=== PATIENT | female | born 1990 | race Caucasian/White ===

== ENCOUNTER 2019-05-10 02:15 | Emergency (ER) | payer MEDICAID ==
[~2019-05-10] VITALS: Ht 162.6 cm; Wt 69.4 kg
[2019-05-10 04:20] VITALS: BP 151/88
== END 2019-05-10 04:37 | disposition home or self-care (01) ==
LOC: ER 02:15
DX: S30.0XXA Contusion of lower back and pelvis, initial encounter (principal); Z88.0 Allergy status to penicillin; W18.39XA Other fall on same level, initial encounter; Y93.89 Activity, other specified; Y99.8 Other external cause status; Y92.89 Other specified places as the place of occurrence of the external cause
CPT/HCPCS: 72220

== ENCOUNTER 2021-05-07 10:46 | Emergency (ER) | payer MEDICAID ==
[~2021-05-07] VITALS: Ht 162.6 cm; Wt 70.3 kg
[2021-05-07 10:48] VITALS: BP 145/102
[2021-05-07] MEDS ORDERED: ALUM & MAG HYDROX-SIMETH LIQ(MAALOX) 30 ML PO ONE (11:15)
[2021-05-07] MEDS ORDERED: FAMOTIDINE (10MG/ML) 2ML VL IV ONE (11:15)
[2021-05-07] MEDS ORDERED: LIDOCAINE VISCOUS 2% 15ML UD PO ONE (11:15)
[2021-05-07] MEDS ORDERED: ONDANSETRON HCL 4 MG/2 ML VIAL IV ONE (11:15)
[2021-05-07 12:00] LABS: Basophils # (auto) 0.1 10 ^3/uL (0-0.2); Basophils % (auto) 0.8 % (0.0-2.0); Eosinophils # (auto) 0.3 10 ^3/uL (0-0.8); Eosinophils % (auto) 2.2 % (0.0-7.0); Hematocrit 41.6 % (36.0-46.0); Lymphocytes # (auto) 2.1 10 ^3/uL (0.4-5.4); Lymphocytes % (auto) 15.7 % (10.0-50.0); Mean Corpuscular Hemoglobin 31.5 pg (28.0-32.0); Mean Corpuscular Hgb Conc. 33.6 g/dL (32.0-36.0); Mean Corpuscular Volume 93.7 fL (80.0-100.0); Monocytes # (auto) 0.6 10 ^3/uL (0-1.3); Monocytes % (auto) 4.6 % (0.0-12.0); Neutrophils # (auto) 10.2 10 ^3/uL (1.6-8.6); Neutrophils % (auto) 76.7 % (37.0-80.0); Red Blood Cells 4.44 10^6/uL (4.0-5.20); Red Cell Distribution Width 13.2 % (11.8-14.3); White Blood Cell 13.3 10^3/uL (4.4-10.8)
[2021-05-07 12:17] LABS: Albumin 4.3 g/dL (3.4-5.0); Calcium 8.7 mg/dL (8.5-10.1); Potassium 3.5 mmol/L (3.5-5.1)
[2021-05-07 12:19] LABS: Urine Bacteria FEW /hpf (None Seen); Urine Blood 3+ /uL (Negative); Urine Mucus FEW (None Seen); Urine Specific Gravity 1.026 (1.001-1.035); Urine WBC 9 /hpf (0 - 5)
[2021-05-07 12:21] LABS: BUN/Creatinine Ratio 15.4; Bilirubin, Total 1.4 mg/dL (0.2-1.0); Total Protein 7.6 g/dL (6.4-8.2)
== END 2021-05-07 12:05 | disposition left against medical advice (07) ==
LOC: ER 10:46
DX: R10.9 Unspecified abdominal pain (principal); R11.2 Nausea with vomiting, unspecified; R19.7 Diarrhea, unspecified; Z53.21 Procedure and treatment not carried out due to patient leaving prior to being seen by health care provider
CPT/HCPCS: 36415; 80053; 81001; 81025; 83690; 85025; J2405; J3490

== ENCOUNTER 2024-02-21 12:09 | Emergency (ER) | payer MEDICAID ==
[~2024-02-21] VITALS: Ht 162.6 cm; Wt 87.0 kg
--- NOTE | 2024-02-21 12:57 | DVH ---
CHEST RADIOGRAPH Indication: CHEST PAIN Technique: Single frontal view of the chest was obtained Comparison: None FINDINGS: Lines and Tubes: None Lungs: No focal consolidation. Pleura: No effusion.No pneumothorax. Cardiomediastinal contours: Unremarkable Pulmonary vasculature: Within normal limits. Bones: There is chronic healed right rib fracture. IMPRESSION: 1. No acute cardiopulmonary disease. HS:Y
[2024-02-21 13:17] LABS: Urine Bacteria FEW /hpf (None Seen); Urine Blood TRACE /uL (Negative); Urine Clarity Clear (Clear); Urine Color Light-Yellow (Yellow); Urine Mucus FEW (None Seen); Urine Protein, UAD TRACE (Negative); Urine Specific Gravity 1.024 (1.001-1.035); Urine Squamous Epithelial Cell FEW /hpf (<5); Urine Urobilinogen Normal (Negative); Urine WBC 2 /hpf (0 - 5)
--- NOTE | 2024-02-21 14:09 | ED.PDOC ---
History of Present Illness Chief Complaint: Chest Pain Comments pt relapsed and started drinking again and feels chest pain after drinking. 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: Denies all HYDRAMATIC MECHANIC Hx Family History Family History: Reviewed,noncontributory to illness Social History Smoker: Non-Smoker Alcohol: Heavy Drugs: Denies Drug Use Constitutional: denies: chills, diaphoresis, fatigue, fever, malaise, sweats, weakness, others EENTM: denies: blurred vision, double vision, ear bleeding, ear discharge, ear drainage, ear pain, ear ringing, eye pain, eye redness, hearing loss, mouth pain, mouth swelling, nasal discharge, nose bleeding, nose congestion, nose pain, photophobia, tearing, throat pain, throat swelling, voice changes, others Respiratory: denies: cough, hemoptysis, orthopnea, SOB at rest, shortness of breath, SOB with excertion, stridor, wheezing, others Cardiovascular: reports: chest pain; denies: dizzy spells, diaphoresis, Dyspnea on exertion, edema, irregular heart beat, left arm pain, lightheadedness, palpitations, PND, syncope, others Gastrointestinal: denies: abdomen distended, abdominal pain, blood streaked bowels, constipated, diarrhea, dysphagia, difficulty swallowing, hematemesis, melena, nausea, poor appetite, poor fluid intake, rectal bleeding, rectal pain, vomiting, others Genitourinary: denies: abnormal vagina bleeding, burning, dyspareunia, dysuria, flank pain, frequency, hematuria, incontinence, pain, , vagina discharge, urgency, others Neurological: denies: dizziness, fainting, headache, left sided numbness, left sided weakness, numbness, paresthesia, pre-existing deficit, right sided numbness, right sided weakness, seizure, speech problems, tingling, tremors, weakness, others Musculoskeletal: denies: back pain, gout, joint pain, joint swelling, muscle pain, muscle stiffness, neck pain, others Integumetry: denies: bruises, change in color, change in hair/nails, dryness, laceration, lesions, lumps, rash, wounds, others Allergic/Immunocompromised: denies: Difficulty Healing, Frequent Infections, Hives, Itching, others Hematologic/Lymphatic: denies: anemia, blood clots, easy bleeding, easy bruising, swollen glands, others Endocrine: denies: excessive hunger, excessive sweating, excessive thirst, excessive urination, flushing, intolerance to cold, intolerance to heat, unexplained weight gain, unexplained weight loss, others Psychiatric: denies: anxiety, bipolar disorder, depression, hopeless, panic disorder, schizophrenia, sleepless, suicidal, others All Other Systems: Reviewed and Negative Physical Exam General Appearance: No Apparent Distress, Normal HEENT: Normal ENT Inspection, Pharynx Normal, TMs Normal Neck: Full Range of Motion, Non-Tender, Normal, Normal Inspection Respiratory: Chest Non-Tender, Lungs Clear, No Accessory Muscle Use, No Respiratory Distress, Normal Breath Sounds Cardiovascular: No Edema, No JVD, No Murmur, No Gallop, Normal Peripheral Pulses, Regular Rate/Rhythm Breast Exam: Deferred Gastrointestinal: No Organomegaly, Non Tender, No Pulsatile Mass, Normal Bowel Sounds, Soft Genitalia: Deferred Pelvic: Deferred Rectal: Deferred Extremities: No calf tenderness, Normal capillary refill, Normal inspection, Normal range of motion, Non-tender, No pedal edema Musculoskeletal : Location: Left Extremity Location: Chest Apperance: Normal, Tenderness, Tenderness: Mild Neurologic: Alert, campaign worker II-XII nml as Tested, No Motor Deficits, Normal Affect, Normal Mood, No Sensory Deficits Cerebellar Function: Normal Reflexes: Normal Skin: Dry, Normal Color, Warm Lymphatic: No Adenopathy Was a procedure done? Was a procedure done?: No EKG EKG : Pulse Rate (adult): 100 Cardiac Rhythm: ST Block: None Hypertrophy: None ST: Normal Differential Dx Considerations may include: anxiety, ptx, acs, pe, pneumonia, chest wall pain X-Ray, Labs, Meds, VS Vital Signs Date Time Temp Pulse Resp B/P (MAP) Pulse Ox O2 Delivery O2 Flow Rate FiO2 02/21/24 12:50 98.2 108 16 141/95 (110) 97 02/21/24 12:14 100 Lab Test 02/21/24 12:30 Range/Units Urine Color Light-yellow Yellow Urine Clarity Clear Clear Urine pH 6.0 5.0-9.0 Urine Specific [place] 1.024 1.001-1.035 Urine Protein Trace H Negative Urine Ketones Trace Negative Urine Blood Trace H Negative /uL Urine Nitrite Negative Negative Urine Bilirubin Negative Negative Urine Urobilinogen Normal Negative mg/dL Urine Leukocyte Esterase Negative Negative /uL Urine RBC 5 0 - 4 /hpf Urine WBC 2 0 - 5 /hpf Urine Squamous Epithelial Cells Few <5 /hpf Urine Bacteria Few H None Seen /hpf Urine Mucus Few None Seen Urine Glucose 1+ H Normal mg/dL Time of 1ST Reevaluation: 14:06 Reevaluation 1ST: Improved Patient Education/Counseling: Diagnosis, Treatment, Prognosis, Need For Follow Up Family Education/Counseling: No Family Present Additional Information pt has no cardiac risk factors and has point tenderness on palpation of the left chest wall. no signs of injuries, cxr and ekg are unremarkable. she is stable for discharge with chest wall pain Departure 1 Departure Time of Disposition: 14:08 Impression: Primary Impression: Chest wall pain Disposition: 01 HOME / SELF CARE / HOMELESS Condition: Good Discharged With: Self Critical Care Note Critical Care Time?: Yes (45 min-critical care time only) Critical care comment: due to concerns for patient's condition deterioration, the care required my highest attention and readiness to intervene. i spoke to the family, patient, reviewed any records, ordered the appropriate tests and treatments, reviewed the results, response and communicated with medical personnel, formulated a plan of care. critical care time does not include any procedures Stability Stability form required: No Heart Score Heart Score: Heart Score Response (Comments) Value History Slightly Suspicious 0 EKG Normal 0 Age <45 0 Risk Factors No known risk factors 0 Troponin Normal limit 0 Total 0 NIALL GOLDSTEIN MD Feb 21, 2024 14:09
--- NOTE | 2024-02-21 14:11 | ED.PDOC ---
HPI Comments 33y F who presents to the ED for chief complaint of chest pain. Pt states she has been having chest pain since 0200 this AM. Pt states the pain is epigastric in location, non-radiating, sharp and pressure like in nature, with no associated exacerbating or relieving factors. Pt has no associated symptoms. Pt states she did relapse with ETOH and has been heavily drinking for the past 2 days. Pt otherwise denies any other symptoms at this time. Chief Complaint: Chest Pain Time Seen by MD: 14:08 Primary Care Provider: NONE Allergies: Coded Allergies: Penicillins (Verified Allergy, Unknown, 05/10/19) Mode of Arrival: Ambulatory Past Medical History PAST MEDICAL HISTORY: Denies Surgical History: Denies all surgeries FAMILY MEDICINE CHAIR History: Denies all FAMILY MEDICINE CHAIR Hx Family History Family History: Reviewed,noncontributory to illness Constitutional: denies: chills, diaphoresis, fatigue, fever, malaise, sweats, weakness, others EENTM: denies: blurred vision, double vision, ear bleeding, ear discharge, ear drainage, ear pain, ear ringing, eye pain, eye redness, hearing loss, mouth pain, mouth swelling, nasal discharge, nose bleeding, nose congestion, nose pain, photophobia, tearing, throat pain, throat swelling, voice changes, others Respiratory: denies: cough, hemoptysis, orthopnea, SOB at rest, shortness of breath, SOB with excertion, stridor, wheezing, others Cardiovascular: reports: chest pain; denies: dizzy spells, diaphoresis, Dyspnea on exertion, edema, irregular heart beat, left arm pain, lightheadedness, palpitations, PND, syncope, others Gastrointestinal: denies: abdomen distended, abdominal pain, blood streaked bowels, constipated, diarrhea, dysphagia, difficulty swallowing, hematemesis, melena, nausea, poor appetite, poor fluid intake, rectal bleeding, rectal pain, vomiting, others Genitourinary: denies: abnormal vagina bleeding, burning, dyspareunia, dysuria, flank pain, frequency, hematuria, incontinence, pain, , vagina discharge, urgency, others Neurological: denies: dizziness, fainting, headache, left sided numbness, left sided weakness, numbness, paresthesia, pre-existing deficit, right sided numbness, right sided weakness, seizure, speech problems, tingling, tremors, weakness, others Musculoskeletal: denies: back pain, gout, joint pain, joint swelling, muscle pain, muscle stiffness, neck pain, others Integumetry: denies: bruises, change in color, change in hair/nails, dryness, laceration, lesions, lumps, rash, wounds, others Allergic/Immunocompromised: denies: Difficulty Healing, Frequent Infections, Hives, Itching, others Hematologic/Lymphatic: denies: anemia, blood clots, easy bleeding, easy bruising, swollen glands, others Endocrine: denies: excessive hunger, excessive sweating, excessive thirst, excessive urination, flushing, intolerance to cold, intolerance to heat, unexplained weight gain, unexplained weight loss, others Psychiatric: denies: anxiety, bipolar disorder, depression, hopeless, panic disorder, schizophrenia, sleepless, suicidal, others All Other Systems: Reviewed and Negative Physical Exam General Appearance: No Apparent Distress, Normal HEENT: Normal ENT Inspection, Pharynx Normal, TMs Normal Neck: Full Range of Motion, Non-Tender, Normal, Normal Inspection Respiratory: Chest Non-Tender, Lungs Clear, No Accessory Muscle Use, No Respiratory Distress, Normal Breath Sounds Cardiovascular: Other (L chest wall point tenderness) Breast Exam: Deferred Gastrointestinal: No Organomegaly, Non Tender, No Pulsatile Mass, Normal Bowel Sounds, Soft Genitalia: Deferred Pelvic: Deferred Rectal: Deferred Extremities: No calf tenderness, Normal capillary refill, Normal inspection, Normal range of motion, Non-tender, No pedal edema Musculoskeletal : Apperance: Normal Neurologic: Alert, [place] II-XII nml as Tested, No Motor Deficits, Normal Affect, Normal Mood, No Sensory Deficits Cerebellar Function: Normal Reflexes: Normal Skin: Dry, Normal Color, Warm Lymphatic: No Adenopathy Was a procedure done? Was a procedure done?: No CP Differential Dx Differential Diagnosis: A-fib, A-Flutter, Angina, Anxiety / Panic Attack, PVC's Other Differential Diagnosis musculoskeletal chest pain Differential Diagnosis: Other Differential Diagnosis: Chest Wall Pain, Costochondritis, Esophageal reflux/spa sm X-Ray, Labs, Meds, VS Vital Signs Date Time Temp Pulse Resp B/P (MAP) Pulse Ox O2 Delivery O2 Flow Rate FiO2 02/21/24 14:37 87 18 99 Room Air 02/21/24 14:37 98.2 87 18 129/95 (106) 99 98.2 02/21/24 14:09 100 02/21/24 12:50 98.2 108 16 141/95 (110) 97 02/21/24 12:14 100 Lab Test 02/21/24 12:30 Range/Units Urine Color Light-yellow Yellow Urine Clarity Clear Clear Urine pH 6.0 5.0-9.0 Urine Specific [place] 1.024 1.001-1.035 Urine Protein Trace H Negative Urine Ketones Trace Negative Urine Blood Trace H Negative /uL Urine Nitrite Negative Negative Urine Bilirubin Negative Negative Urine Urobilinogen Normal Negative mg/dL Urine Leukocyte Esterase Negative Negative /uL Urine RBC 5 0 - 4 /hpf Urine WBC 2 0 - 5 /hpf Urine Squamous Epithelial Cells Few <5 /hpf Urine Bacteria Few H None Seen /hpf Urine Mucus Few None Seen Urine Glucose 1+ H Normal mg/dL [place] [address] Ph: [phone] DIAGNOSTIC IMAGING Diagnostic Imaging Report : [id number] Signed PATIENT: LYLA PEDRAZA ACCT: [id number] UNIT: [id number] : 1990 LOC: ER ROOM / BED: / AGE / SEX: 33 / F ADM STATUS: REG ER SERVICE [id number] ORDERING PHYSICIAN: NIALL GOLDSTEIN MD PROCEDURE(s): CXRP - CHEST PORTABLE REASON: CHEST PAIN ORDER NUMBER(s): [id number], ACCESSION NUMBER(s): [id number] CHEST RADIOGRAPH Indication: CHEST PAIN Technique: Single frontal view of the chest was obtained Comparison: None FINDINGS: Lines and Tubes: None Lungs: No focal consolidation. Pleura: No effusion.No pneumothorax. Cardiomediastinal contours: Unremarkable Pulmonary vasculature: Within normal limits. Bones: There is chronic healed right rib fracture. IMPRESSION: 1. No acute cardiopulmonary disease. HS:Y ATED BY: TERENCE NASH MD DICTATED DATE/TIME: 02/21/24 1256 SIGNED BY: TERENCE NASH MD SIGNED DATE/TIME: 02/21/24 1256 CC: Time of 1ST Reevaluation: 14:40 Reevaluation 1ST: Improved Patient Education/Counseling: Diagnosis, Treatment, Prognosis, Need For Follow Up Family Education/Counseling: No Family Present Additional Information - I reviewed the following notes from patient's past medical encounters: - The following tests were ordered, and results were reviewed by me: (Labs, X- Ray, EKG): UA, EKG x3, chest x-ray, - Additional information was gathered from interviewing the following independent Historian: (Family, Other Providers, EMT): none - I reviewed and agreed with the following test results read by other provider: (X-ray, CT, US): radiologist - I discussed treatments and results with medical personnel and: (consultants, family): none Departure 1 Departure Time of Disposition: 12:44 Impression: Primary Impression: Musculoskeletal chest pain Disposition: 01 HOME / SELF CARE / HOMELESS Condition: Good Discharged With: Self Critical Care Note Critical Care Time?: No Stability Stability form required: No Heart Score Heart Score: Heart Score Response (Comments) Value History N/A 0 EKG N/A 0 Age N/A 0 Risk Factors N/A 0 Troponin N/A 0 Total 0 I personally scribed for NIALL GOLDSTEIN MD ([email or web address]) on 02/21/24 at 14:11. Electronically submitted by Keren Murray ([email or web address]). NIALL GOLDSTEIN MD Feb 21, 2024 14:11
--- NOTE | 2024-02-21 14:29 | ECG ---
[facility] Test Date: 2024-02-21 Test Time: 12:14:31 Pat Name: LYLA PEDRAZA Department: ER Room: Gender: F Weather Analyst: PARTH : 1990 Requested By: NIALL GOLDSTEIN Order Number: [id number] Reading MD: Josesito Casey Measurements Intervals [place] Rate: 100 P: 69 OK: 123 QRS: 38 QRSD: 74 T: 57 QT: 350 QTc: 452 Interpretive Statements Sinus tachycardia Probable left atrial enlargement Electronically Signed On 02-21-2024 15:45:26 PST by Josesito Casey Please click the below link to view image of tracing.
[2024-02-21 14:37] VITALS: BP 129/95; PULSE 87; RESP 18; TEMP 98.2; O2SAT 99
== END 2024-02-21 14:40 | disposition home or self-care (01) ==
LOC: ER 12:09
DX: R07.89 Other chest pain (principal); F10.20 Alcohol dependence, uncomplicated; Z88.0 Allergy status to penicillin
CPT/HCPCS: 71045; 81001; 93005; 99291

== ENCOUNTER 2024-05-13 22:43 | Emergency (ER) | payer MEDICAID ==
[~2024-05-13] VITALS: Ht 162.6 cm; Wt 79.3 kg
--- NOTE | 2024-05-14 | DVH ---
CLINICAL HISTORY: RIGHT LEG PAIN TECHNIQUE: Color and duplex doppler imaging of the right lower extremity veins was performed. Vessel compression if possible was also performed. WID: COMPARISON: None FINDINGS: Right common femoral vein: Normal compressibility and flow. Right femoral vein: Normal compressibility and flow. Right popliteal vein: Normal compressibility and flow. Proximal calf veins are normally compressible. IMPRESSION: NO SONOGRAPHIC EVIDENCE FOR DEEP VENOUS THROMBOSIS IN THE RIGHT LOWER EXTREMITY VEINS.
[2024-05-14 00:38] VITALS: BP 131/84; PULSE 75; RESP 16; TEMP 98.2; O2SAT 98
[2024-05-14] MEDS ORDERED: ACET500T58 PO (00:41)
--- NOTE | 2024-05-14 00:43 | ED.PDOC ---
Musculoskeletal HPI Comments 33-year-old female presents to ER with complaints of right groin pain x1 day. Patient reports she started experiencing sudden onset of right groin pain while laying in bed at 9:00 p.m. prior to arrival to ER. She rates her current pain a 7/10 to right groin with radiation towards her right foot. Denies use of medications for current symptoms. States she does have numbness/tingling going down posterior right leg. Patient presents to ER ambulatory on arrival, with steady gait, in no distress. Denies trauma/injury/strenuous activity, abdominal/pelvic pain or any further symptoms/complaints Chief Complaint: Lower Extremity Time Seen by MD: 23:32 Primary Care Provider: NONE Reviewed Notes: Nurses Notes, Medications, Allergies Allergies: Coded Allergies: Penicillins (Verified Allergy, Unknown, 05/10/19) Home Meds Active Scripts Sulfamethoxazole W/Trimethopri (Bactrim Ds Tablet) 1 Tab Tb, 1 TAB PO BID for 7 Days, #14 TAB 0 Refills Prov:ALVARO MANZO 05/14/24 Acetaminophen (Acetaminophen) 500 Mg Tab, 500 MG PO Q4HPRN, #30 TAB 0 Refills Prov:ALVARO MANZO 05/14/24 Information Source: Patient Mode of Arrival: Ambulatory Past Medical History PAST MEDICAL HISTORY: HTN Surgical History: Tonsillectomy 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: Denies all 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 Hx Family History Family History: Unknown Social History Smoker: Non-Smoker Alcohol: Occasionally Drugs: Denies Drug Use Lives In: Home Constitutional: denies: chills, diaphoresis, fatigue, fever, malaise, sweats, weakness, others EENTM: denies: blurred vision, double vision, ear bleeding, ear discharge, ear drainage, ear pain, ear ringing, eye pain, eye redness, hearing loss, mouth pain, mouth swelling, nasal discharge, nose bleeding, nose congestion, nose pain, photophobia, tearing, throat pain, throat swelling, voice changes, others Respiratory: denies: cough, hemoptysis, orthopnea, SOB at rest, shortness of breath, SOB with excertion, stridor, wheezing, others Cardiovascular: denies: chest pain, dizzy spells, diaphoresis, Dyspnea on exertion, edema, irregular heart beat, left arm pain, lightheadedness, palpitations, PND, syncope, others Gastrointestinal: denies: abdomen distended, abdominal pain, blood streaked bowels, constipated, diarrhea, dysphagia, difficulty swallowing, hematemesis, melena, nausea, poor appetite, poor fluid intake, rectal bleeding, rectal pain, vomiting, others Genitourinary: denies: abnormal vagina bleeding, burning, dyspareunia, dysuria, flank pain, frequency, hematuria, incontinence, pain, , vagina discharge, urgency, others Neurological: denies: dizziness, fainting, headache, left sided numbness, left sided weakness, numbness, paresthesia, pre-existing deficit, right sided numbness, right sided weakness, seizure, speech problems, tingling, tremors, weakness, others Musculoskeletal: reports: others (As stated in HPI) Integumetry: denies: bruises, change in color, change in hair/nails, dryness, laceration, lesions, lumps, rash, wounds, others Allergic/Immunocompromised: denies: Difficulty Healing, Frequent Infections, Hives, Itching, others Hematologic/Lymphatic: denies: anemia, blood clots, easy bleeding, easy bruising, swollen glands, others Endocrine: denies: excessive hunger, excessive sweating, excessive thirst, excessive urination, flushing, intolerance to cold, intolerance to heat, unexplained weight gain, unexplained weight loss, others Psychiatric: denies: anxiety, bipolar disorder, depression, hopeless, panic disorder, schizophrenia, sleepless, suicidal, others Physical Exam General Appearance: No Apparent Distress HEENT: PERRL/EOMI Neck: Full Range of Motion, Non-Tender, Normal Respiratory: Chest Non-Tender, Lungs Clear, No Accessory Muscle Use, No Respiratory Distress, Normal Breath Sounds Cardiovascular: No Murmur, No Gallop, Regular Rate/Rhythm Breast Exam: Deferred Gastrointestinal: Non Tender, No Pulsatile Mass, Soft Genitalia: Deferred Pelvic: Deferred Rectal: Deferred Extremities: Normal capillary refill, Normal range of motion Musculoskeletal : Extremity Location: Groin (TTP to right groin noted. No skin changes noted. Pulses intact. No TTP to right hip noted. 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 Was a procedure done?: No Sedation Sedation?: No Differential Diagnosis EXT Differential Diagnosis: Cellulitis, Fracture, Dislocation, Contusion, Neurovascular injury X-Ray, Labs, Meds, VS Vital Signs Date Time Temp Pulse Resp B/P (MAP) Pulse Ox O2 Delivery O2 Flow Rate FiO2 05/14/24 00:38 75 16 98 Room Air 05/14/24 00:38 98.2 75 16 131/84 (100) 98 98.2 05/13/24 22:58 98.2 75 16 131/84 (100) 98 98.2 Lab Test 05/14/24 00:50 Range/Units Urine Color Light-red Yellow Urine Clarity Ex.turbid Clear Urine pH 5.5 5.0-9.0 Urine Specific [place] 1.016 1.001-1.035 Urine Protein 1+ H Negative Urine Ketones Negative Negative Urine Blood 3+ H Negative /uL Urine Nitrite Negative Negative Urine Bilirubin Negative Negative Urine Urobilinogen Normal Negative mg/dL Urine Leukocyte Esterase 3+ Negative /uL Urine RBC 9579 0 - 4 /hpf Urine Microscopic WBC 75 H 0-5 /HPF Urine Squamous Epithelial Cells None seen <5 /hpf Urine Bacteria None seen None Seen /hpf Urine Mucus Few None Seen Urine Glucose Normal Normal mg/dL Urine Test Negative Negative PATIENT: LYLA PEDRAZA MACCT: [id number] UNIT: [id number] : 1990 LOC: ER ROOM / BED: / AGE / SEX: 33 / F ADM STATUS: REG ER SERVICE [id number] ORDERING PHYSICIAN: ALVARO MANZO PROCEDURE(s): RLDVT - RT Lower DVT REASON: RIGHT LEG PAIN ORDER NUMBER(s): [id number], ACCESSION NUMBER(s): [id number] CLINICAL HISTORY: RIGHT LEG PAIN TECHNIQUE: Color and duplex doppler imaging of the right lower extremity veins was performed. Vessel compression if possible was also performed. WID: COMPARISON: None FINDINGS: Right common femoral vein: Normal compressibility and flow. Right femoral vein: Normal compressibility and flow. Right popliteal vein: Normal compressibility and flow. Proximal calf veins are normally compressible. IMPRESSION: NO SONOGRAPHIC EVIDENCE FOR DEEP VENOUS THROMBOSIS IN THE RIGHT LOWER EXTREMITY VEINS. ATED BY: ANGELITO COX MD DICTATED DATE/TIME: 05/13/242356 SIGNED BY: ANGELITO COX MD SIGNED DATE/TIME: 05/13/242356 CC: Right lower DVT ultrasound reviewed Right hip x-ray reviewed Urinalysis reviewed -urine leukocyte esterase 3+, urine blood 3+, urine nitrites negative Urine reviewed - negative Rocephin 1 g IM ordered Toradol 60 mg IM ordered Patient neurovascularly intact, reported improvement in symptoms and in no distress prior to discharge Advised to f/u with PCP in 1-2 days Patient verbalized understanding and in no distress prior to discharge Advised to return to ER immediately if symptoms worsen Images Reviewed?: Images reviewed and evaluated by me Time of 1ST Reevaluation: 00:24 Reevaluation 1ST: N/A Patient Education/Counseling: Diagnosis, Treatment, Prognosis, Need For Follow Up Family Education/Counseling: No Family Present Departure 1 Departure Time of Disposition: 00:40 Impression: Primary Impression: UTI (urinary tract infection) Qualified Codes: N30.01 - Acute cystitis with hematuria Additional Impression: Strain of right groin Disposition: 01 HOME / SELF CARE / HOMELESS Condition: Stable e-Prescriptions Sulfamethoxazole W/Trimethopri (Bactrim Ds Tablet) 1 Tab Tb 1 TAB PO BID for 7 Days, #14 TAB 0 Refills Prov: ALVARO MANZO 05/14/24 Acetaminophen (Acetaminophen) 500 Mg Tab 500 MG PO Q4HPRN, #30 TAB 0 Refills Prov: ALVARO MANZO 05/14/24 Discharged With: Self Critical Care Note Critical Care Time?: No Stability Stability form required: No Heart Score Heart Score: Heart Score Response (Comments) Value History N/A 0 EKG N/A 0 Age N/A 0 Risk Factors N/A 0 Troponin N/A 0 Total 0 ALVARO MANZO May 14, 2024 00:43
[2024-05-14 00:53] LABS: Urine Bacteria None Seen /hpf (None Seen)
[2024-05-14 01:11] LABS: Urine Blood 3+ /uL (Negative); Urine Clarity Ex.Turbid (Clear); Urine Color Light-Red (Yellow); Urine Mucus FEW (None Seen); Urine Protein, UAD 1+ (Negative); Urine Specific Gravity 1.016 (1.001-1.035); Urine Squamous Epithelial Cell None Seen /hpf (<5); Urine Urobilinogen Normal (Negative); Urine WBC 75 /HPF (0-5); Urine pH 5.5 (5.0-9.0)
[2024-05-14] MEDS ORDERED: BACDST PO (01:23)
[2024-05-14] MEDS: cefTRIAXone SOD 1,000 MG VL IM ONE (01:36)
[2024-05-14] MEDS: KETOROLAC TROMETH 60MG/2ML VIAL IM ONE (01:37)
== END 2024-05-14 01:23 | disposition home or self-care (01) ==
LOC: ER 22:49
DX: S39.011A Strain of muscle, fascia and tendon of abdomen, initial encounter (principal); N39.0 Urinary tract infection, site not specified; I10 Essential (primary) hypertension; Z88.0 Allergy status to penicillin; Z32.02 Encounter for pregnancy test, result negative; Z90.89 Acquired absence of other organs; X58.XXXA Exposure to other specified factors, initial encounter; Y93.89 Activity, other specified; Y92.89 Other specified places as the place of occurrence of the external cause; Y99.8 Other external cause status
CPT/HCPCS: 81001; 81025; 93971; 96372; 99285; J0696; J1885

== ENCOUNTER 2024-06-08 22:53 | Emergency (ER) | payer MEDICAID ==
[~2024-06-08] VITALS: Ht 162.6 cm; Wt 79.4 kg
[~2024-06-08 22:53] MED LIST: ACET500T58 PO; BACDST PO
[2024-06-08 23:02] VITALS: BP 124/85; PULSE 64; RESP 16; O2SAT 99
--- NOTE | 2024-06-08 23:15 | ED.PDOC ---
HPI (NEURO) HPI Comments PATIENT COMES WITH C/C OF PULSATING HEADACHE X2 DAYS. PATIENT REPORTS SHE DOES NOT GET HEADACHES AND SHE IS HAVING BLURRY VISION AND SEEING ORBS. PATIENT DENIES ANY INJURY, N/VM NUMBNESS AND TINGLING. DENIES WORST HEADACHE OF HER LIFE, NAUSEA, VOMITING, DIZZINESS, CHEST PAIN, SHORTNESS OF BREATH, NECK RIGIDITY, FEVER OR CHILLS. 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 PSYCHIATRIST History: Denies all PEDIATRIC PSYCHIATRIST Hx Family History Family History: Unknown Social History Smoker: Non-Smoker Alcohol: Occasionally Drugs: Denies Drug Use Lives In: Home Constitutional: denies: chills, diaphoresis, fatigue, fever, malaise, sweats, weakness, others EENTM: denies: blurred vision, double vision, ear bleeding, ear discharge, ear drainage, ear pain, ear ringing, eye pain, eye redness, hearing loss, mouth pain, mouth swelling, nasal discharge, nose bleeding, nose congestion, nose pain, photophobia, tearing, throat pain, throat swelling, voice changes, others Respiratory: denies: cough, hemoptysis, orthopnea, SOB at rest, shortness of breath, SOB with excertion, stridor, wheezing, others Cardiovascular: denies: chest pain, dizzy spells, diaphoresis, Dyspnea on exertion, edema, irregular heart beat, left arm pain, lightheadedness, palpitations, PND, syncope, others Gastrointestinal: denies: abdomen distended, abdominal pain, blood streaked bowels, constipated, diarrhea, dysphagia, difficulty swallowing, hematemesis, melena, nausea, poor appetite, poor fluid intake, rectal bleeding, rectal pain, vomiting, others Genitourinary: denies: abnormal vagina bleeding, burning, dyspareunia, dysuria, flank pain, frequency, hematuria, incontinence, pain, , vagina discharge, urgency, others Neurological: reports: headache; denies: dizziness, fainting, left sided numbness, left sided weakness, numbness, paresthesia, pre-existing deficit, right sided numbness, right sided weakness, seizure, speech problems, tingling, tremors, weakness, others Musculoskeletal: denies: back pain, gout, joint pain, joint swelling, muscle pain, muscle stiffness, neck pain, others Integumetry: denies: bruises, change in color, change in hair/nails, dryness, laceration, lesions, lumps, rash, wounds, others Allergic/Immunocompromised: denies: Difficulty Healing, Frequent Infections, Hives, Itching, others Hematologic/Lymphatic: denies: anemia, blood clots, easy bleeding, easy bruising, swollen glands, others Endocrine: denies: excessive hunger, excessive sweating, excessive thirst, excessive urination, flushing, intolerance to cold, intolerance to heat, unexplained weight gain, unexplained weight loss, others Psychiatric: denies: anxiety, bipolar disorder, depression, hopeless, panic disorder, schizophrenia, sleepless, suicidal, others Physical Exam General Appearance: No Apparent Distress, Normal HEENT: Normal ENT Inspection, Pharynx Normal, TMs Normal Neck: Full Range of Motion, Non-Tender Respiratory: Chest Non-Tender, Lungs Clear, No Accessory Muscle Use, No Respiratory Distress, Normal Breath Sounds Cardiovascular: No Edema, No JVD, No Murmur, No Gallop, Normal Peripheral Pulses, Regular Rate/Rhythm Breast Exam: Deferred Gastrointestinal: No Organomegaly, Non Tender, No Pulsatile Mass, Normal Bowel Sounds, Soft Genitalia: Deferred Pelvic: Deferred Rectal: Deferred Extremities: Normal capillary refill, Normal inspection, Normal range of motion, Non-tender, No pedal edema Musculoskeletal : Apperance: Normal Neurologic: Alert, it program engagement director II-XII nml as Tested, No Motor Deficits, Normal Affect, Normal Mood, No Sensory Deficits Cerebellar Function: Normal Reflexes: Normal Skin: Dry, Normal Color, Warm Lymphatic: No Adenopathy Was a procedure done? Was a procedure done?: No Differential Diagnosis (SZ) Headache: Epidural Hemorrhage, Intracerebral Hemorrhage, Subarachnoid Hemorrhage, Subdural Hemorrhage, Post-Traumatic, Sinusitis X-Ray, Labs, Meds, VS Vital Signs Date Time Temp Pulse Resp B/P (MAP) Pulse Ox O2 Delivery O2 Flow Rate FiO2 06/08/24 23:02 98.3 64 16 124/85 (98) 99 98.3 06/08/24 23:02 98.3 64 16 124/85 (98) 99 98.3 06/08/24 23:02 Room Air Current Medications Medications (Trade) Dose Ordered Sig/Camila Route Start Time Stop Time Status Last Admin Ketorolac Tromethamine (Toradol Injection) 60 mg ONCE ONCE IM 06/08/24 23:45 06/08/24 23:46 DC 06/08/24 23:49 Dexamethasone Sodium Phosphate (Decadron Injection) 10 mg ONCE ONCE IM 06/08/24 23:45 06/08/24 23:46 DC 06/08/24 23:48 Ondansetron HCl (Zofran Po) 4 mg ONCE ONCE PO 06/08/24 23:45 06/08/24 23:46 DC 06/08/24 23:48 X-Ray, Labs, Meds, VS Comment PATIENT GIVEN TORADOL 60 MG IM, DECADRON 10 MG IM, AND ZOFRAN 4 MG P.O. REPORTS IMPROVEMENT IN PAIN RATES PAIN 04/06 REQUESTING DISCHARGE AT THIS TIME. SCRIPT SUMATRIPTAN FOR ABORTIVE REBOUND HEADACHE IF RECURS. ADVISED TAKE MEDICATIONS PRESCRIBED SIDE EFFECTS DISCUSSED. FOLLOW UP WITH YOUR PCP IN 1-2 DAYS CONSIDER REFERRAL TO NEUROLOGY FOR DAILY PREVENTATIVE MEDICATION IF SEVERAL MIGRAINES A WEEK. ER RETURN PRECAUTIONS GIVEN PATIENT INDICATES UNDERSTANDING AGREES WITH DISCHARGE PLAN OF CARE. Time of 1ST Reevaluation: 23:13 Reevaluation 1ST: Unchanged Time of 2ND Reevaluation: 00:46 Reevaluation 2ND: Improved Patient Education/Counseling: Diagnosis, Treatment, Prognosis, Need For Follow Up Family Education/Counseling: No Family Present Departure 1 Departure Time of Disposition: 00:45 Impression: Primary Impression: Headache Qualified Codes: R51.9 - Headache, unspecified Disposition: HOME / SELF CARE / HOMELESS Condition: Stable Additional Instructions: FOLLOW UP WITH YOUR PCP IN 1-2 DAYS CONSIDER REFERRAL TO NEUROLOGY FOR DAILY PREVENTATIVE MEDICATION IF SEVERAL MIGRAINES A WEEK. RETURN TO THE ER FOR WORST HEADACHE OF THE LIFE, SLURRED SPEECH, CHEST PAIN, DIFFICULTY BREATHING, SHORTNESS OF BREATH, NUMBNESS OR WEAKNESS OR ANY CONCERNING SYMPTOMS. e-Prescriptions Sumatriptan Succinate (Sumatriptan Succinate) 25 Mg Tab 25 MG PO ONCE PRN for 3 Days, #6 TAB TAKE 1 TAB NEEDED BY MOUTH ONCE AT ONSET OF MIGRAINE. HE REPEAT 1 TAB 2 HOURS LATER IF MIGRAINE STILL PERSISTENT. Prov: EVELYN KING 06/09/24 Discharged With: Self Critical Care Note Critical Care Time?: No Stability Stability form required: No EVELYN KING Jun 08, 2024 23:15
[2024-06-08] MEDS: DexAMETHasone SOD PHOS 10MG/1ML VIAL INJ IM ONE (23:48)
[2024-06-08] MEDS: ONDANSETRON ODT 4 MG TAB PO ONE (23:48)
[2024-06-08] MEDS: KETOROLAC TROMETH 60MG/2ML VIAL IM ONE (23:49)
[2024-06-09] MEDS ORDERED: SUMA25TA2 PO (00:47)
[2024-06-09 00:54] VITALS: TEMP 99.7
== END 2024-06-09 00:57 | disposition home or self-care (01) ==
LOC: ER 22:53
DX: R51.9 Headache, unspecified (principal); I10 Essential (primary) hypertension; Z90.89 Acquired absence of other organs
CPT/HCPCS: 96372; 99284; J1100; J1885; Q0162

== ENCOUNTER 2024-06-30 03:17 | Emergency (ER) | payer MEDICAID ==
[~2024-06-30] VITALS: Ht 162.6 cm; Wt 77.7 kg
[2024-06-30 03:28] VITALS: BP 140/95; PULSE 94; RESP 12; TEMP 98; O2SAT 97
--- NOTE | 2024-06-30 03:29 | ED.PDOC ---
HPI (NEURO) HPI Comments PATIENT COMES WITH C/C OF HEADACHE AFTER FALLING AND HITTING HEAD ON DOOR. PATIENT REPORTS SHE GOT UP OUT OF BED, YAWNED AND THEN BLACKED OUT. UNWITNESSED FALL. PATIENT REPORTS DIZZINESS. DENIES N/V/D, BLURRED VISION, CHEST PAIN OR SOB. 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 CHEMICAL PACKAGER Hx Family History Family History: Unknown Social History Smoker: Non-Smoker Alcohol: Occasionally Drugs: Denies Drug Use Lives In: Home Constitutional: denies: chills, diaphoresis, fatigue, fever, malaise, sweats, weakness, others EENTM: denies: blurred vision, double vision, ear bleeding, ear discharge, ear drainage, ear pain, ear ringing, eye pain, eye redness, hearing loss, mouth pain, mouth swelling, nasal discharge, nose bleeding, nose congestion, nose pain, photophobia, tearing, throat pain, throat swelling, voice changes, others Respiratory: denies: cough, hemoptysis, orthopnea, SOB at rest, shortness of breath, SOB with excertion, stridor, wheezing, others Cardiovascular: denies: chest pain, dizzy spells, diaphoresis, Dyspnea on exertion, edema, irregular heart beat, left arm pain, lightheadedness, palpitations, PND, syncope, others Gastrointestinal: denies: abdomen distended, abdominal pain, blood streaked bowels, constipated, diarrhea, dysphagia, difficulty swallowing, hematemesis, melena, nausea, poor appetite, poor fluid intake, rectal bleeding, rectal pain, vomiting, others Neurological: reports: dizziness, headache; denies: fainting, left sided numbness, left sided weakness, numbness, paresthesia, pre-existing deficit, right sided numbness, right sided weakness, seizure, speech problems, tingling, tremors, weakness, others Musculoskeletal: denies: back pain, gout, joint pain, joint swelling, muscle pain, muscle stiffness, neck pain, others Integumetry: denies: bruises, change in color, change in hair/nails, dryness, laceration, lesions, lumps, rash, wounds, others Allergic/Immunocompromised: denies: Difficulty Healing, Frequent Infections, Hives, Itching, others Hematologic/Lymphatic: denies: anemia, blood clots, easy bleeding, easy bruising, swollen glands, others Endocrine: denies: excessive hunger, excessive sweating, excessive thirst, excessive urination, flushing, intolerance to cold, intolerance to heat, unexplained weight gain, unexplained weight loss, others Psychiatric: denies: anxiety, bipolar disorder, depression, hopeless, panic disorder, schizophrenia, sleepless, suicidal, others Physical Exam General Appearance: No Apparent Distress, Normal HEENT: Normal ENT Inspection, Pharynx Normal, TMs Normal Neck: Full Range of Motion, Non-Tender Respiratory: Chest Non-Tender, Lungs Clear, No Accessory Muscle Use, No Respiratory Distress, Normal Breath Sounds Cardiovascular: No Edema, No JVD, No Murmur, No Gallop, Normal Peripheral Pulses, Regular Rate/Rhythm Breast Exam: Deferred Gastrointestinal: No Organomegaly, Non Tender, No Pulsatile Mass, Normal Bowel Sounds, Soft Genitalia: Deferred Pelvic: Deferred Rectal: Deferred Extremities: Normal capillary refill, Normal inspection, Normal range of motion, Non-tender, No pedal edema Musculoskeletal : Apperance: Normal Neurologic: Alert, control tower operator II-XII nml as Tested, No Motor Deficits, Normal Affect, Normal Mood, No Sensory Deficits Cerebellar Function: Normal Reflexes: Normal Skin: Dry, Normal Color, Warm Lymphatic: No Adenopathy Was a procedure done? Was a procedure done?: No Differential Diagnosis (SZ) Headache: Epidural Hemorrhage, Intracerebral Hemorrhage, Subarachnoid Hemorrhage, Subdural Hemorrhage X-Ray, Labs, Meds, VS Vital Signs Date Time Temp Pulse Resp B/P (MAP) Pulse Ox O2 Delivery O2 Flow Rate FiO2 06/30/24 03:28 98.0 94 12 140/95 (110) 97 98.0 06/30/24 03:28 98.0 94 12 146/95 (112) 97 98.0 X-Ray, Labs, Meds, VS Comment HEAD CT SHOWS NO ACUTE BLEEDS OR CHRONIC FINDINGS. REPORTS IMPROVEMENT REQUESTING DISCHARGE AT THIS TIME. ADVISED TO BE MONITORED FOR THE NEXT 24-48 HOURS RETURN TO THE ER CALL 911 FOR CHANGE IN MENTATION, LETHARGY, NONSTOP VOMITING, SLURRED SPEECH, OR ANY NEURO CONCERNS. FOLLOW UP WITH HER PCP IN 2 DAYS. ER RETURN PRECAUTIONS GIVEN PATIENT INDICATES UNDERSTANDING AGREES WITH DISCHARGE PLAN OF CARE. Time of 1ST Reevaluation: 03:28 Reevaluation 1ST: Unchanged Time of 2ND Reevaluation: 04:05 Reevaluation 2ND: Improved Patient Education/Counseling: Diagnosis, Treatment, Prognosis, Need For Follow Up Family Education/Counseling: Diagnosis, Treatment, Prognosis, Need For Follow Up Departure 1 Departure Time of Disposition: 04:06 Impression: Primary Impression: Concussion Qualified Codes: S06.0X9A - Concussion with loss of consciousness of unspecified duration, initial encounter Additional Impression: Status post fall Disposition: 01 HOME / SELF CARE / HOMELESS Condition: Stable Discharged With: Spouse Critical Care Note Critical Care Time?: No Stability Stability form required: EVELYN Sanchez June 30, 2024 03:29
--- NOTE | 2024-06-30 03:57 | DVH ---
EXAM: CT HEAD WITHOUT CONTRAST INDICATION: head trauma + LOC TECHNIQUE: CT of the head without intravenous contrast. Radiation Dose : 1. Head: CT Dose: CTDI volume is 48.84 mGy. Dose-length product is 685.54 mGy*cm The dose indicators for CT are the volume Computed Tomography (CT) Dose Index (CTDIvol) and the Dose Length Product (DLP), and are measured in units of mGy and mGy-cm, respectively. These indicators are not patient dose, but values generated from the CT scanner acquisition factors. The report includes radiation exposure data for exposures received during this examination. COMPARISON: None FINDINGS: There is no evidence of acute intracranial hemorrhage, extra-axial collection, mass effect, midline s hift, herniation or hydrocephalus. The ventricles, sulci and cisterns are age appropriate. The lane-white differentiation is intact. The visualized paranasal sinuses and mastoid air cells are clear. The surrounding soft tissues and osseous structures are unremarkable. IMPRESSION: 1. No acute intracranial abnormality. Radiation optimization: All CT scans at this facility use at least one of these dose optimization darek hniques: automated exposure control mA and/or kV adjustment per patient size (includes targeted exam s where dose is matched to clinical indication) or iterative reconstruction.
== END 2024-06-30 04:20 | disposition home or self-care (01) ==
LOC: ER 03:17
DX: S06.0XAA Concussion with loss of consciousness status unknown, initial encounter (principal); I10 Essential (primary) hypertension; Z90.89 Acquired absence of other organs; W22.09XA Striking against other stationary object, initial encounter; Y93.89 Activity, other specified; Y92.89 Other specified places as the place of occurrence of the external cause; Y99.8 Other external cause status
CPT/HCPCS: 70450

== ENCOUNTER 2024-09-21 14:24 | Emergency (ER) | payer MEDICAID ==
[~2024-09-21] VITALS: Ht 160 cm; Wt 79.7 kg
[2024-09-21] MEDS ORDERED: AUG875T PO (15:10)
[2024-09-21] MEDS ORDERED: CETI5TAB6 PO (15:10)
[2024-09-21] MEDS ORDERED: FLUT1SPR5 (15:10)
[2024-09-21] MEDS ORDERED: CIPR1SUS8 OT (15:10)
--- NOTE | 2024-09-21 15:10 | ED.PDOC ---
Eye-HPI HPI Comments 34 year old female with a past medical history of hypertension presents to the emergency department with a chief complaint of RT ear pain onset 1 day. Patient has been experiencing RT ear pain for the past day, radiates to RT side of neck and is also experiencing sore throat. Currently rates pain 8/10. No other symptoms or modifying factors present at this time. Denies blunt trauma (hand blow to the ear, fall, direct hit) Denies penetrating trauma (Q-tip use, match-stick, gunshot wound, welding spark) Denies ear trauma Denies air travel Denies scuba diving Denies hearing loss Denies fever chills night sweats unintentional weight loss Denies nausea vomiting severe headache or recent vision changes Chief Complaint: Earache Time Seen by MD: 14:34 Primary Care Provider: NONE Reviewed Notes: Medications, Allergies Allergies: Coded Allergies: Penicillins (Verified Allergy, Unknown, 05/10/19) Home Meds Active Scripts Ciprofloxacin-Dexamethasone (Ciprofloxacin/Dexamethaso 0.3-0.1 %) 1 Sariah Sariah, 4 DROP OT BID for 7 Days, #1 BOTTLE 0 Refills Prov:CARLOS COOPER AIRPORT MAINTENANCE LABORER 09/21/24 Fluticasone Propionate (Nasal) (Flonase Allergy Relief) 50 Mcg/Act Spr, 50 MCG NA DAILY for 30 Days, #1 BOTTLE 0 Refills Prov:CARLOS COOPER AIRPORT MAINTENANCE LABORER 09/21/24 Cetirizine Hcl (Cetirizine Hcl) 5 Mg Tab, 10 MG PO DAILY for 10 Days, #20 TAB 0 Refills Prov:CARLOS COOPER AIRPORT MAINTENANCE LABORER 09/21/24 Amoxicillin & Pot Clavulanate (AUGMENTIN TABLET) 875 Mg Tb, 875 MG PO BID for 5 Days, #10 TAB 0 Refills Prov:CARLOS COOPER AIRPORT MAINTENANCE LABORER 09/21/24 Sulfamethoxazole W/Trimethopri (Bactrim Ds Tablet) 1 Tab Tb, 1 TAB PO BID for 7 Days, #14 TAB 0 Refills Prov:ALVARO MANZO 05/14/24 Acetaminophen (Acetaminophen) 500 Mg Tab, 500 MG PO Q4HPRN, #30 TAB 0 Refills Prov:ALVARO MANZO 05/14/24 Information Source: Patient Mode of Arrival: Ambulatory Timing: Days Duration: Since onset Prehospital treatment: None Quality: Pain Lids: Normal Conjunctiva: Normal Cornea: Normal Pupils: Normal EOM: Normal Fundus: Normal Slit lamp exam: Normal Anterior chamber: Normal Mouth: Normal Nose: Normal Sinuses: Normal Oropharynx: Normal Onset: Spontaneous Throat Exposed to: None Eye Context Recent: Tonsillectomy History of: None Associated signs and symptoms: Ear Pain Past Medical History PAST MEDICAL HISTORY: HTN Surgical History: Tonsillectomy 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 No signs of mastoiditis. No pain to the low pills with tugging. No pain to the auricles. Canals clear no erythema no swelling no discharge. TMs intact bilaterally. No signs of bulging or erythema) Neck: Full Range of Motion, Non-Tender, Normal, Normal Inspection Respiratory: Chest Non-Tender, Lungs Clear, No Accessory Muscle Use, No Respiratory Distress, Normal Breath Sounds Cardiovascular: No Edema, No JVD, No Murmur, No Gallop, Normal Peripheral Pulses, Regular Rate/Rhythm Breast Exam: Deferred Gastrointestinal: No Organomegaly, Non Tender, No Pulsatile Mass, Normal Bowel Sounds, Soft Genitalia: Deferred Pelvic: Deferred Rectal: Deferred Extremities: No calf tenderness, Normal capillary refill, Normal inspection, Normal range of motion, Non-tender, No pedal edema Musculoskeletal : Apperance: Normal Neurologic: Alert, remediation bioanalytics consultant II-XII nml as Tested, No Motor Deficits, Normal Affect, Normal Mood, No Sensory Deficits Cerebellar Function: Normal Reflexes: Normal Skin: Dry, Normal Color, Warm Lymphatic: No Adenopathy Was a procedure done? Was a procedure done?: No EENT DIFF Eye: Other X-Ray, Labs, Meds, VS Vital Signs Date Time Temp Pulse Resp B/P (MAP) Pulse Ox O2 Delivery O2 Flow Rate FiO2 09/21/24 16:26 98.6 110 16 128/68 (88) 95 98.6 09/21/24 14:46 99.3 110 16 147/92 (110) 96 99.3 X-Ray, Labs, Meds, VS Comment 34 year old female with a past medical history of hypertension presents to the emergency department with a chief complaint of RT ear pain onset 1 day. Patient arrives alert and oriented, ABC's intact, afebrile, vital signs stable, saturating well in room air Differentials considered but not limited to bullous myringitis, eustachian tube dysfunction, cholesteatoma, mastoiditis, meningitis. No diabetes, immunosuppression. Rx: Augmentin Disposition: Discharge home. Strict return precautions discussed. Advise follow up with primary care provider within 24-48 hours. Patient is stable for discharge at this time. External notes reviewed. Test results and diagnostic imaging interpreted. All diagnostic findings, discharge care, education and instructions provided Follow-up with PCP in 2 to 3 days Patient verbalized understanding and agreed to treatment plan Vital signs stable, afebrile, no acute distress noted Patient ambulatory with strong steady gait Advised to return precautions for any new or worsening symptoms, return to ER immediately for re-evaluation Patient is aware that the purpose of this visit was for an acute medical emergency requiring emergent stabilization. Chronic conditions, including malignancies have not been ruled out. Patient is instructed to follow up with PCP as directed and discharge instructions for continued care and workup. If unable to arrange follow-up, patient is to return to the emergency department for reassessment. Patient (parent or legal guardian if applicable) was given verbal and written discharge instructions and acknowledges understanding. Additional MDM Review of External, Non-ED records: External records reviewed. Discussion with independent historian (EMS, family) history obtained from the patient/parents (if applicable) at bedside Chronic conditions affecting care: HTN Social determinants of health affecting care: None I considered escalation of care to admission for this patient, however given the reassuring workup, the patient is safe for outpatient management. Time of 1ST Reevaluation: 15:04 Reevaluation 1ST: Improved Patient Education/Counseling: Diagnosis, Treatment Family Education/Counseling: No Family Present SEPSIS Sepsis Screen Vital Signs Date Time Temp Pulse Resp B/P (MAP) Pulse Ox O2 Delivery O2 Flow Rate FiO2 09/21/24 16:26 98.6 110 16 128/68 (88) 95 98.6 09/21/24 14:46 99.3 110 16 147/92 (110) 96 99.3 Departure 1 Departure Time of Disposition: 15:09 Impression: Primary Impression: Otalgia of right ear Disposition: 01 HOME / SELF CARE / HOMELESS Condition: Stable e-Prescriptions Ciprofloxacin-Dexamethasone (Ciprofloxacin/Dexamethaso 0.3-0.1 %) 1 Sariah Sariah 4 DROP OT BID for 7 Days, #1 BOTTLE 0 Refills Prov: CARLOS COOPER NP 09/21/24 Fluticasone Propionate (Nasal) (Flonase Allergy Relief) 50 Mcg/Act Spr 50 MCG NA DAILY for 30 Days, #1 BOTTLE 0 Refills Prov: CARLOS COOPER NP 09/21/24 Cetirizine Hcl (Cetirizine Hcl) 5 Mg Tab 10 MG PO DAILY for 10 Days, #20 TAB 0 Refills Prov: CARLOS COOPER NP 09/21/24 Amoxicillin & Pot Clavulanate (AUGMENTIN TABLET) 875 Mg Tb 875 MG PO BID for 5 Days, #10 TAB 0 Refills Prov: CARLOS COOPER NP 09/21/24 Critical Care Note Critical Care Time?: No Stability Stability form required: No I personally scribed for CARLOS COOPER NP ([email or web address]) on 09/21/24 at 15:33. Electronically submitted by Patricia Thompson ([email or web address]). CARLOS COOPER NP Sep 21, 2024 15:10
[2024-09-21 16:26] VITALS: BP 128/68; PULSE 110; RESP 16; TEMP 98.6; O2SAT 95
== END 2024-09-21 16:28 | disposition home or self-care (01) ==
LOC: ER 14:28
DX: H92.01 Otalgia, right ear (principal); I10 Essential (primary) hypertension; Z90.89 Acquired absence of other organs; Z88.0 Allergy status to penicillin